=== PATIENT | female | born 1985 | race Caucasian/White ===

== ENCOUNTER 2021-08-27 14:25 | Outpatient (REF) | payer BC, SELFPAY ==
[2021-08-27 14:49] LABS: Appearance Urine CLOUDY; Color Urine DK YELLOW; Glucose Urine UA NEG (NEG); Leukocyte Esterase Urine 3+ (NEG); Nitrite Urine POS (NEG); Specific Gravity - Urine 1.025 (1.005-1.025); UACC Culture Trigger YES; Urine Blood TRACE (NEG); Urine Ketones 5 MG/DL (NEG); Urine Protein 1+ MG/DL (NEG-TRACE)
[2021-08-27 15:00] LABS: RBC Urine 0-2 /HPF (0)
[2021-08-27 15:01] LABS: Bacteria Urine 2+ /LPF; Calcium Oxalate Crystals Urine 1+ /LPF
[2021-08-27 15:37] LABS: Influenza A PCR NEGATIVE (Negative); Influenza B PCR NEGATIVE (Negative); Resp Syncy Virus RNA Qual PCR NEGATIVE (Negative); SARS COV2 PCR INHOUSE NEGATIVE (Negative)
== END 2021-08-27 14:26 | disposition home or self-care (01) ==
LOC: HO.LAB 14:25
PROVIDERS: Visit Provider Physician Assistant Medical
DX: Z00.8 Encounter for other general examination (principal); R30.0 Dysuria
CPT/HCPCS: 0241U; 36415; 81001; 87086; 87088; 87186

== ENCOUNTER 2021-09-05 08:24 | Outpatient (REF) | payer BC, SELFPAY ==
[2021-09-05 09:32] LABS: COVID-19 Test Negative (Negative); IDNOW Serial# 9DD0AD1C
== END 2021-09-05 08:25 | disposition home or self-care (01) ==
LOC: HO.ED 08:24
PROVIDERS: Visit Provider Internal Medicine
DX: Z20.822 Contact with and (suspected) exposure to COVID-19 (principal)
CPT/HCPCS: 36415; 87635